=== PATIENT | female | born 1965 | race Caucasian/White ===

== ENCOUNTER → 2016-09-01 | Outpatient (REF) | payer MEDICAID | LOC: M SFHCWAGY 15:35 | PROVIDERS: ATTEND Nurse Practitioner Family | DX: Z12.72 Encounter for screening for malignant neoplasm of vagina (principal) ==

== ENCOUNTER → 2016-09-01 | Outpatient (CLI) | payer MEDICAID ==
--- NOTE | 2016-09-01 16:34 | REPMRS ---
Patient History The patient states she had a clinical breast exam in 08/2016. Patient is postmenopausal. Family history of pancreatic cancer in father at age 43. Digital Woman Screen Mammo: September 01, 2016 - Exam #: [id number] Bilateral CC and MLO view(s) were taken. Technologist: Renea Erickson, Technologist Prior study comparison: March 15, 2013, digital woman screen mammo performed at [facility] to [facility]. March 14, 2012, digital woman screen mammo performed at [facility] to [facility]. FINDINGS: There are scattered fibroglandular densities. There has been no change in the appearance of the mammogram from the prior studies. There is a mild amount of residual fibroglandular tissue which is fairly symmetric. There is no interval development of dominant mass, architectural distortion, or clustered microcalcification suggestive of malignancy. ASSESSMENT: BI-RADS/ACR category 1 mammogram. Negative. Recommendation Routine screening mammogram in 1 year (for women over age 40). This mammogram was interpreted with the aid of an FDA-approved computer-aided dectection system. Electronically Signed By: Trevon Jacobsen MD 09/01/16 [id number]
== END ==
LOC: M WHC 14:55
PROVIDERS: ATTEND Nurse Practitioner Family
DX: Z12.31 Encounter for screening mammogram for malignant neoplasm of breast (principal); Z78.0 Asymptomatic menopausal state

== ENCOUNTER → 2016-10-21 | Outpatient (CLI) | payer MEDICAID, OTHER ==
[2016-10-21 07:25] LABS: MEAN CORPUSCULAR HEMOGLOBIN 30.9 pg (27.0-33.0); MEAN CORPUSCULAR HGB CONC 34.5 g/dl (32.0-36.5); MEAN CORPUSCULAR VOLUME 89.6 fl (80.0-96.0); RED CELL DISTRIBUTION WIDTH 12.6 % (11.5-14.5); WHITE BLOOD COUNT 6.1 K/mm3 (4.0-10.0)
[2016-10-21 08:00] LABS: ALBUMIN 3.8 GM/DL (3.2-5.2); ALBUMIN/GLOBULIN RATIO 1.06 (1.00-1.93); ALKALINE PHOSPHATASE 66 U/L (45-117); ALT/SGPT 78 U/L (12-78); ANION GAP 7 MEQ/L (8-16); AST/SGOT 45 U/L (15-37); BILIRUBIN,TOTAL 0.4 MG/DL (0.2-1.0); BLOOD UREA NITROGEN 18 MG/DL (7-18); CALCIUM LEVEL 8.6 MG/DL (8.5-10.1); CARBON DIOXIDE LEVEL 28 MEQ/L (21-32); CHLORIDE LEVEL 107 MEQ/L (98-107); CHOLESTEROL LEVEL 132 MG/DL (<200); CREATININE FOR GFR 0.87 MG/DL (0.55-1.02); GLOMERULAR FILTRATION RATE > 60.0 (>58); GLUCOSE, FASTING 94 MG/DL (70-105); SODIUM LEVEL 142 MEQ/L (136-145); TOTAL PROTEIN 7.4 GM/DL (6.4-8.2); TRIGLYCERIDES LEVEL 71 MG/DL (<150)
== END ==
LOC: M LAB 06:56
PROVIDERS: ATTEND Nurse Practitioner Family
DX: R73.9 Hyperglycemia, unspecified (principal); E78.5 Hyperlipidemia, unspecified

== ENCOUNTER → 2016-12-29 | Outpatient (CLI) | payer OTHER ==
[~2016-12-29] VITALS: Ht 165.1 cm; Wt 87.5 kg
[~2016-12-29] MED LIST: FENO160T10 PO; LIDOCAINE 2% INJ 100 MG/5 ML SDV (FOR ANES.) As Ordered ONE; NS 1,000 ML IV ONE; PROBCAP4 PO; PROPOFOL 200 MG/20 ML VIAL As Ordered ONE
--- NOTE | 2016-12-29 11:54 | ROOR ---
Patient Name: Nahomi Mena Procedure Date: 12/29/2016 11:35 AM Date of : 1965 Age: 51 Room: [facility] Gender: Female Note Status: Finalized Procedure: Upper GI endoscopy Indications: Nausea Providers: Cricket Zheng Jr, MD Referring MD: SIDNEY RICK MD Requesting Provider: Medicines: Propofol per Anesthesia Complications: No immediate complications. Procedure: Pre-Anesthesia Assessment: - Prior to the procedure, a History and Physical was performed, and patient medications and allergies were reviewed. The patient is competent. The risks and benefits of the procedure and the sedation options and risks were discussed with the patient. All questions were answered and informed consent was obtained. Patient identification and proposed procedure were verified by the physician and the nurse in the pre-procedure area and in the procedure room. Mental Status Examination: alert and oriented. Airway Examination: normal oropharyngeal airway and neck mobility. Respiratory Examination: clear to auscultation. CV Examination: normal. ASA Grade Assessment: II - A patient with mild systemic disease. After reviewing the risks and benefits, the patient was deemed in satisfactory condition to undergo the procedure. The anesthesia plan was to use moderate sedation / analgesia (conscious sedation). Immediately prior to administration of medications, the patient was re-assessed for adequacy to receive sedatives. The heart rate, respiratory rate, oxygen saturations, blood pressure, adequacy of pulmonary ventilation, and response to care were monitored throughout the procedure. The physical status of the patient was re-assessed after the procedure. The Endoscope was introduced through the mouth, and advanced to the second part of duodenum. The upper GI endoscopy was accomplished without difficulty. The patient tolerated the procedure well. Findings: The upper third of the esophagus, middle third of the esophagus and lower third of the esophagus were normal. Patchy moderate inflammation characterized by congestion (edema), erosions, erythema and friability was found in the gastric fundus, in the gastric body, in the gastric antrum and in the prepyloric region of the stomach. Biopsies were taken with a cold forceps for histology. To prevent bleeding after the biopsy, one hemostatic clip was successfully placed. There was no bleeding at the end of the procedure. The duodenal bulb, first portion of the duodenum and second portion of the duodenum were normal. Impression: - Normal upper third of esophagus, middle third of esophagus and lower third of esophagus. - Gastritis. Biopsied. Clip was placed. - Normal duodenal bulb, first portion of the duodenum and second portion of the duodenum. Recommendation: - Discharge patient to home (ambulatory). - Return to my office in 2 weeks. Cricket Zheng MD Cricket Zheng Jr, MD 12/29/2016 11:53:26 AM This report has been signed electronically. Number of Addenda: 0 Note Initiated On: 12/29/2016 11:35 AM Estimated Blood Loss: Estimated blood loss: none.
--- NOTE | 2016-12-29 12:09 | ROOR ---
Patient Name: Nahomi Mena Procedure Date: 12/29/2016 11:36 AM Date of : 1965 Age: 51 Room: [facility] Gender: Female Note Status: Finalized Procedure: Colonoscopy Indications: Clinically significant diarrhea of unexplained origin Providers: Cricket Zheng Jr, MD Referring MD: SIDNEY RICK MD Requesting Provider: Medicines: Propofol per Anesthesia Complications: No immediate complications. Procedure: Pre-Anesthesia Assessment: - Prior to the procedure, a History and Physical was performed, and patient medications and allergies were reviewed. The patient is competent. The risks and benefits of the procedure and the sedation options and risks were discussed with the patient. All questions were answered and informed consent was obtained. Patient identification and proposed procedure were verified by the physician and the nurse in the pre-procedure area and in the procedure room. Mental Status Examination: alert and oriented. Airway Examination: normal oropharyngeal airway and neck mobility. Respiratory Examination: clear to auscultation. CV Examination: normal. ASA Grade Assessment: II - A patient with mild systemic disease. After reviewing the risks and benefits, the patient was deemed in satisfactory condition to undergo the procedure. The anesthesia plan was to use moderate sedation / analgesia (conscious sedation). Immediately prior to administration of medications, the patient was re-assessed for adequacy to receive sedatives. The heart rate, respiratory rate, oxygen saturations, blood pressure, adequacy of pulmonary ventilation, and response to care were monitored throughout the procedure. The physical status of the patient was re-assessed after the procedure. The Colonoscope was introduced through the anus and advanced to the terminal ileum. The colonoscopy was performed without difficulty. The patient tolerated the procedure well. The quality of the bowel preparation was adequate. Findings: The perianal exam findings include non-thrombosed external hemorrhoids, non-thrombosed internal hemorrhoids, internal hemorrhoids that prolapse with straining, but spontaneously regress to the resting position (Grade II) and internal hemorrhoids that prolapse with straining, but require manual replacement into the anal canal (Grade III). The rectum, recto-sigmoid colon, sigmoid colon, descending colon, transverse colon, ascending colon, ileocecal valve and ileum appeared normal. Biopsies for histology were taken with a cold forceps from the ascending colon, transverse colon, descending colon and sigmoid colon for evaluation of microscopic colitis. Impression: - Non-thrombosed external hemorrhoids, non-thrombosed internal hemorrhoids, internal hemorrhoids that prolapse with straining, but spontaneously regress to the resting position (Grade II) and internal hemorrhoids that prolapse with straining, but require manual replacement into the anal canal (Grade III) found on perianal exam. - The rectum, recto-sigmoid colon, sigmoid colon, descending colon, transverse colon, ascending colon, ileocecal valve and terminal ileum are normal. Biopsied. Recommendation: - Discharge patient to home (ambulatory). - Return to my office. Cricket Zheng MD Cricket Zheng Jr, MD 12/29/2016 12:09:06 PM This report has been signed electronically. Number of Addenda: 0 Note Initiated On: 12/29/2016 11:36 AM Estimated Blood Loss: Estimated blood loss: none.
[2016-12-29 12:35] VITALS: BP 108/70
== END | disposition home or self-care (01) ==
LOC: M OPP 09:42
PROVIDERS: ATTEND Surgery
DX: K64.4 Residual hemorrhoidal skin tags (principal); K64.8 Other hemorrhoids; K64.1 Second degree hemorrhoids; K64.2 Third degree hemorrhoids; R11.0 Nausea; K29.70 Gastritis, unspecified, without bleeding; E78.00 Pure hypercholesterolemia, unspecified; R06.83 Snoring; I10 Essential (primary) hypertension; F41.9 Anxiety disorder, unspecified; F31.9 Bipolar disorder, unspecified; Z79.899 Other long term (current) drug therapy

== ENCOUNTER → 2017-05-01 | Outpatient (REF) | payer OTHER ==
[~2017-05-01] MED LIST changes: -LIDOCAINE 2% INJ 100 MG/5 ML SDV (FOR ANES.) As Ordered ONE; -NS 1,000 ML IV ONE; -PROPOFOL 200 MG/20 ML VIAL As Ordered ONE
== END ==
LOC: M LAB REF 17:38
PROVIDERS: ATTEND Surgery
DX: D48.5 Neoplasm of uncertain behavior of skin (principal)

== ENCOUNTER → 2017-05-11 | Outpatient (REF) | payer OTHER | LOC: M LAB REF 18:35 | PROVIDERS: ATTEND Physician Assistant | DX: N39.0 Urinary tract infection, site not specified (principal) ==

== ENCOUNTER → 2017-05-22 | Outpatient (CLI) | payer OTHER | LOC: M WUC 09:16 | PROVIDERS: ATTEND Nurse Practitioner Family | DX: Z11.4 Encounter for screening for human immunodeficiency virus [HIV] (principal) ==

== ENCOUNTER → 2017-07-04 | Outpatient (CLI) | payer OTHER ==
[2017-07-04 07:44] LABS: HEMATOCRIT 43.4 % (36.0-47.0); HEMOGLOBIN 14.9 g/dl (12.0-16.0); MEAN CORPUSCULAR HEMOGLOBIN 30.5 pg (27.0-33.0); MEAN CORPUSCULAR HGB CONC 34.3 g/dl (32.0-36.5); MEAN CORPUSCULAR VOLUME 88.8 fl (80.0-96.0); PLATELET COUNT, AUTOMATED 265 10^3/uL (150-450); RED BLOOD COUNT 4.89 10^6/uL (4.00-5.40); RED CELL DISTRIBUTION WIDTH 12.9 % (11.5-14.5); WHITE BLOOD COUNT 6.3 10^3/uL (4.0-10.0)
[2017-07-04 08:08] LABS: ALBUMIN 3.8 GM/DL (3.2-5.2); ALBUMIN/GLOBULIN RATIO 1.03 (1.00-1.93); ALKALINE PHOSPHATASE 76 U/L (45-117); ALT/SGPT 74 U/L (12-78); ANION GAP 6 MEQ/L (8-16); AST/SGOT 52 U/L (7-37); BILIRUBIN,TOTAL 0.4 MG/DL (0.2-1.0); BLOOD UREA NITROGEN 15 MG/DL (7-18); CALCIUM LEVEL 8.9 MG/DL (8.5-10.1); CARBON DIOXIDE LEVEL 29 MEQ/L (21-32); CHLORIDE LEVEL 109 MEQ/L (98-107); CHOLESTEROL LEVEL 127 MG/DL (<200); CHOLESTEROL RISK RATIO 2.822 (<5); CPK CREATINE PHOSPHOKINASE 123 U/L (26-192); CREATININE FOR GFR 0.79 MG/DL (0.55-1.02); GLOMERULAR FILTRATION RATE > 60.0 (>51); GLUCOSE, FASTING 96 MG/DL (70-100); HDL CHOLESTEROL 45 MG/DL (>40); LDL CHOLESTEROL 61.8 MG/DL (<100); NON-HDL-C 82 MG/DL; POTASSIUM SERUM 4.3 MEQ/L (3.5-5.1); SODIUM LEVEL 144 MEQ/L (136-145); TOTAL PROTEIN 7.5 GM/DL (6.4-8.2); TRIGLYCERIDES LEVEL 101 MG/DL (<150)
[2017-07-04 08:33] LABS: VITAMIN B12 LEVEL 421 PG/ML (247-911)
== END ==
LOC: M LAB 06:39
DX: D64.9 Anemia, unspecified (principal); E55.9 Vitamin D deficiency, unspecified
CPT/HCPCS: 82550

== ENCOUNTER → 2017-09-12 | Outpatient (CLI) | payer OTHER ==
[2017-09-12 07:05] LABS: ESTIMATED AVERAGE GLUCOSE 111 MG/DL (60-110); HEMOGLOBIN A1c 5.5 %
[2017-09-12 07:17] LABS: FREE T4 1.02 NG/DL (0.76-1.46)
== END ==
LOC: M LAB 06:06
DX: R73.9 Hyperglycemia, unspecified (principal); E03.9 Hypothyroidism, unspecified

== ENCOUNTER → 2018-01-08 | Outpatient (REF) | payer OTHER ==
[2018-01-08 12:41] LABS: CHOLESTEROL LEVEL 118 MG/DL (<200); CHOLESTEROL RISK RATIO 3.105 (<5); CPK CREATINE PHOSPHOKINASE 236 U/L (26-192); HDL CHOLESTEROL 38 MG/DL (>40); LDL CHOLESTEROL 50.2 MG/DL (<100); NON-HDL-C 80 MG/DL; TRIGLYCERIDES LEVEL 149 MG/DL (<150)
[2018-01-08 12:52] LABS: PTH INTACT 22.3 PG/ML (18.5-88.0); TOTAL 25(OH) VITAMIN D 55.7 NG/ML (30.0-100.0)
== END ==
LOC: M SFHCPLAZ 08:35
DX: E78.5 Hyperlipidemia, unspecified (principal); E55.9 Vitamin D deficiency, unspecified

== ENCOUNTER → 2018-02-01 | Outpatient (REF) | payer OTHER ==
[2018-02-01 17:11] LABS: CHLAMYDIA DNA AMPLIFICATION NEGATIVE (NEGATIVE); GC DNA AMPLIFICATION NEGATIVE (NEGATIVE)
== END ==
LOC: M SFHCWAGY 15:33
DX: Z11.3 Encounter for screening for infections with a predominantly sexual mode of transmission (principal)

== ENCOUNTER 2018-02-26 16:31 | Emergency (ER) | payer OTHER | END 2018-02-26 21:07 | disposition left against medical advice (07) | LOC: M ED 16:31 | DX: Z53.21 Procedure and treatment not carried out due to patient leaving prior to being seen by health care provider (principal) ==

== ENCOUNTER → 2018-05-16 | Outpatient (CLI) | payer OTHER | LOC: M WHC 08:19 | DX: Z12.31 Encounter for screening mammogram for malignant neoplasm of breast (principal); Z78.0 Asymptomatic menopausal state | CPT/HCPCS: 77067 ==

== ENCOUNTER → 2018-05-28 | Outpatient (CLI) | payer OTHER ==
[~2018-05-28] MED LIST changes: +MELO15TA28; +OMEP20CA3; +VALT500T PO; +VITA50005
[2018-05-28 08:36] LABS: BASO # 0.1 10^3/uL (0.0-0.2); BASO % 0.7 % (0.0-1.0); EOS # 0.1 10^3/uL (0.0-0.50); EOS % 1.9 % (0.0-3.0); HEMATOCRIT 42.5 % (36.0-47.0); HEMOGLOBIN 14.9 g/dl (12.0-15.5); LYMPH % 27.5 % (24.0-44.0); MEAN CORPUSCULAR HEMOGLOBIN 30.8 pg (27.0-33.0); MEAN CORPUSCULAR HGB CONC 35.1 g/dl (32.0-36.5); MEAN CORPUSCULAR VOLUME 87.8 fl (80.0-96.0); MONO # 0.6 10^3/uL (0.0-0.8); MONO % 8.7 % (0.0-5.0); NEUTROPHILS # 4.4 10^3/uL (1.8-7.7); NEUTROPHILS % 60.8 % (36.0-66.0); PLATELET COUNT, AUTOMATED 285 10^3/uL (150-450); RED BLOOD COUNT 4.84 10^6/uL (4.00-5.40); WHITE BLOOD COUNT 7.2 10^3/uL (4.0-10.0)
[2018-05-28 09:07] LABS: ALBUMIN 3.6 GM/DL (3.2-5.2); ALT/SGPT 53 U/L (12-78); BILIRUBIN,TOTAL 0.3 MG/DL (0.2-1.0); BLOOD UREA NITROGEN 16 MG/DL (7-18); CALCIUM LEVEL 8.8 MG/DL (8.5-10.1); CARBON DIOXIDE LEVEL 29 MEQ/L (21-32); CHLORIDE LEVEL 107 MEQ/L (98-107); CREATININE FOR GFR 0.87 MG/DL (0.55-1.30); GLOMERULAR FILTRATION RATE > 60.0 (>51); GLUCOSE, FASTING 101 MG/DL (70-100); POTASSIUM SERUM 4.1 MEQ/L (3.5-5.1); SODIUM LEVEL 143 MEQ/L (136-145)
[2018-05-28 10:38] LABS: HEMOGLOBIN A1c 5.8 %
[2018-05-28 10:54] LABS: PTH INTACT 44.7 PG/ML (18.5-88.0); TOTAL 25(OH) VITAMIN D 73.5 NG/ML (30.0-100.0)
[2018-05-28 10:55] LABS: VITAMIN B12 LEVEL 438 PG/ML (247-911)
== END ==
LOC: M LAB 08:05
PROVIDERS: ATTEND Physician Assistant Medical
DX: R53.83 Other fatigue (principal); E78.5 Hyperlipidemia, unspecified; E66.9 Obesity, unspecified; E55.9 Vitamin D deficiency, unspecified

== ENCOUNTER → 2018-06-15 | Outpatient (CLI) | payer BC ==
[~2018-06-15] MED LIST changes: +GASTROGRAFIN SOLUTION 30ML (Q9963) As Ordered ONE; +ISOVUE-370 76% 100ML VIAL (Q9967) As Ordered ONE
--- NOTE | 2018-06-15 16:59 | REP ---
REASON FOR EXAM: Right upper quadrant pain. COMPARISON EXAM: None. CONTRAST: 100 mL Isovue-[id number]. The lung bases are clear. The liver, spleen, pancreas, adrenal glands, and kidneys are within normal limits. The patient is status-post cholecystectomy. There is an incidental subcentimeter sized focal area of low density in the superior pole of the left kidney consistent with a simple cyst. The abdominal aorta and paraaortic regions are within normal limits. The bowel loops and their mesenteries are within normal limits. There was no evidence of an intraabdominal mass or adenopathy. There was no evidence of free fluid or free air. CT PELVIS: The bowel loops and their mesenteries are within normal limits. There is no mass or adenopathy. There was no free fluid or free air. Bone window technique throughout the examination shows the osseous structures to be within normal limits for the patient's age. IMPRESSION:CT findings as described above, within normal limits. Electronically Signed by Chinedu Edwards DO 06/18/2018 05:24 P
== END ==
LOC: M RAD 14:18
PROVIDERS: ATTEND Surgery
DX: R10.11 Right upper quadrant pain (principal)
CPT/HCPCS: 74177; Q9963; Q9967

== ENCOUNTER → 2018-09-16 | Outpatient (CLI) | payer BC ==
[~2018-09-16] MED LIST changes: -GASTROGRAFIN SOLUTION 30ML (Q9963) As Ordered ONE; -ISOVUE-370 76% 100ML VIAL (Q9967) As Ordered ONE
[2018-09-16 09:42] LABS: ALT/SGPT 48 U/L (12-78); BILIRUBIN,TOTAL 0.4 MG/DL (0.2-1.0); BLOOD UREA NITROGEN 20 MG/DL (7-18); CARBON DIOXIDE LEVEL 27 MEQ/L (21-32); CHLORIDE LEVEL 110 MEQ/L (98-107); GLOMERULAR FILTRATION RATE > 60.0 (>51); GLUCOSE, FASTING 92 MG/DL (70-100); POTASSIUM SERUM 4.3 MEQ/L (3.5-5.1); SODIUM LEVEL 143 MEQ/L (136-145); TOTAL PROTEIN 7.5 GM/DL (6.4-8.2)
[2018-09-16 10:22] LABS: HEMOGLOBIN A1c 5.5 %
== END ==
LOC: M LAB 08:23
PROVIDERS: ATTEND Physician Assistant Medical
DX: R73.01 Impaired fasting glucose (principal)

== ENCOUNTER → 2018-11-26 | Outpatient (CLI) | payer BC ==
--- NOTE | 2018-11-26 19:41 | REP ---
MR spine series: Five views: History: Lumbar radiculopathy. Findings: There are surgical clips in right upper quadrant of the abdomen consistent with previous cholecystectomy. Lumbar vertebral body heights are preserved. Alignment is normal in the lumbar spine. There is disc space narrowing at L4-5 with anterior osteophyte formation consistent with degenerative disc disease. Some degenerative disc changes are seen in the lower thoracic spine as well. There is no evidence of spondylolysis or spondylolisthesis. Mild facet hypertrophy is present bilaterally L4-5 and L5-S1. Psoas margins are symmetric. Sacrum and SI joints are unremarkable. Impression: Degenerative disc disease L4-5. Mild facet hypertrophy bilaterally at 4-5 and 5-1. Electronically Signed by Bj Whiteside MD 11/27/2018 08:33 A
== END ==
LOC: M WUC 16:28
PROVIDERS: ATTEND Chiropractor
DX: M51.36 Other intervertebral disc degeneration, lumbar region (principal); M51.37 Other intervertebral disc degeneration, lumbosacral region

== ENCOUNTER → 2018-12-25 | Outpatient (REF) | payer BC ==
[~2018-12-25] MED LIST changes: +OMEP1CAP73; -OMEP20CA3
[2018-12-25 20:19] LABS: APPEARANCE, URINE MANUAL CLOUDY (CLEAR); BILIRUBIN, URINE MANUAL OBSCURED (NEGATIVE); BLOOD URINE MANUAL OBSCURED (NEGATIVE); COLOR, URINE MANUAL ORANGE (YELLOW); GLUCOSE, URINE (UA) MANUAL OBSCURED mg/dL (NEGATIVE); KETONE, URINE MANUAL OBSCURED mg/dL (NEGATIVE); LEUKOCYTE ESTERASE, URINE MAN OBSCURED (NEGATIVE); NITRITE, URINE MANUAL OBSCURED (NEGATIVE); PH,URINE MAN OBSCURED UNITS (5.0 - 7.0); PROTEIN, URINE MANUAL OBSCURED mg/dL (NEGATIVE); UROBILINOGEN, URINE MANUAL OBSCURED mg/dl (NORMAL)
[2018-12-25 20:34] LABS: AMORPHOUS SEDIMENT, URINE LARGE AMOUNT (NEGATIVE)
[2018-12-25 20:35] LABS: CALCIUM OXALATE CRYSTALS,URINE SMALL AMOUNT /hpf
[2018-12-25 20:36] LABS: HYALINE CAST, URINE NONE SEEN /lpf (0-1); RBC, URINE 0-1 /hpf (0-3); SQUAMOUS EPITHELIAL CELL URINE SMALL AMOUNT /hpf (SMALL AMT)
[2018-12-25 20:39] LABS: BACTERIA, URINE SMALL AMOUNT
== END ==
LOC: M LAB REF 11:48
PROVIDERS: ATTEND Physician Assistant Medical
DX: R30.0 Dysuria (principal)

== ENCOUNTER → 2019-03-07 | Outpatient (REF) | payer BC ==
[~2019-03-07] MED LIST changes: -OMEP1CAP73; +OMEP20CA4
[2019-03-07 17:30] LABS: FREE T4 1.14 NG/DL (0.76-1.46); RHEUMATOID FACTOR QUANT < 10.0 IU/ML (<15.0); TOTAL PROTEIN 7.2 GM/DL (6.4-8.2)
[2019-03-07 17:31] LABS: FOLATE 18.5 NG/ML; VITAMIN B12 LEVEL 847 PG/ML
[2019-03-12 09:17] LABS: DRVV SCREEN 36.1 SEC
[2019-03-12 09:37] LABS: ALBUMIN 4.06 GM/DL (3.29-5.55); ALBUMIN % 56.4 % (55.8-66.1); ALPHA-1-GLOBULIN % 4.4 % (2.9-4.9); ALPHA-1-GLOBULINS 0.32 GM/DL (0.17-0.41); ALPHA-2-GLOBULINS 0.68 GM/DL (0.42-0.99); ALPHA-2-GLOBULINS % 9.4 % (7.1-11.8); BETA-1-GLOBULINS 0.46 GM/DL (0.28-0.60); BETA-1-GLOBULINS % 6.4 % (4.7-7.2); BETA-2-GLOBULINS % 5.6 % (3.2-6.5); GAMMA GLOBULIN % 17.8 % (11.1-18.8); GAMMA GLOBULINS 1.28 GM/DL (0.65-1.58)
[2019-03-12 10:06] LABS: PTT LUPUS TYPE ANTICOAG SCREEN 0.9 (0-1.2)
[2019-03-13 08:12] LABS: ANTINUCLEAR ANTIBODIES DIRECT Negative (Negative); VITAMIN B1 LEVEL WHOLE BLOOD 148.3 nmol/L (66.5-200.0); VITAMIN B6,PYRIDOXAL PHOSPHATE 24.8 ug/L (2.0-32.8); VITAMIN E(ALPHA TOCOPHEROL) 6.6 mg/L (7.0-25.1); VITAMIN E(GAMMA TOCOPHEROL) 1.9 mg/L (0.5-5.5)
== END ==
LOC: M LABNEURO 13:11
PROVIDERS: ATTEND Psychiatry & Neurology Neurology
DX: G62.9 Polyneuropathy, unspecified (principal)

== ENCOUNTER → 2019-04-15 | Outpatient (REF) | payer OTHER | LOC: M LAB REF 14:39 | PROVIDERS: ATTEND Internal Medicine Gastroenterology | DX: K30 Functional dyspepsia (principal) ==

== ENCOUNTER → 2019-04-23 | Outpatient (REF) | payer OTHER, BC ==
[2019-04-23 19:15] LABS: CHLAMYDIA DNA AMPLIFICATION NEGATIVE (NEGATIVE); GC DNA AMPLIFICATION NEGATIVE (NEGATIVE)
== END ==
LOC: M SFHCWAGY 17:11
PROVIDERS: ATTEND Nurse Practitioner Family
DX: Z11.3 Encounter for screening for infections with a predominantly sexual mode of transmission (principal)

== ENCOUNTER → 2019-05-25 | Outpatient (CLI) | payer BC ==
[~2019-05-25] MED LIST changes: +OMEP-172; -OMEP20CA4
[2019-05-25 08:52] LABS: BASO % 0.5 % (0.0-1.0); EOS # 0.1 10^3/uL (0.0-0.5); EOS % 1.1 % (0.0-3.0); HEMATOCRIT 44.7 % (36.0-47.0); HEMOGLOBIN 14.8 g/dl (12.0-15.5); LYMPH # 1.8 10^3/uL (1.5-5.0); LYMPH % 29.1 % (24.0-44.0); MEAN CORPUSCULAR HEMOGLOBIN 30.5 pg (27.0-33.0); MEAN CORPUSCULAR HGB CONC 33.1 g/dl (32.0-36.5); MEAN CORPUSCULAR VOLUME 92.2 fl (80.0-96.0); MONO # 0.5 10^3/uL (0.0-0.8); MONO % 8.1 % (0.0-5.0); NEUTROPHILS # 3.8 10^3/uL (1.5-8.5); NEUTROPHILS % 60.7 % (36.0-66.0); PLATELET COUNT, AUTOMATED 298 10^3/uL (150-450); RED BLOOD COUNT 4.85 10^6/uL (4.00-5.40); WHITE BLOOD COUNT 6.3 10^3/uL (4.0-10.0)
[2019-05-25 09:19] LABS: ALBUMIN 3.9 GM/DL (3.2-5.2); ALT/SGPT 42 U/L (12-78); BILIRUBIN,TOTAL 0.4 MG/DL (0.2-1.0); BLOOD UREA NITROGEN 17 MG/DL (7-18); CARBON DIOXIDE LEVEL 30 MEQ/L (21-32); CHLORIDE LEVEL 109 MEQ/L (98-107); CHOLESTEROL LEVEL 109 MG/DL (<200); CHOLESTEROL RISK RATIO 2.945 (<5); CREATININE FOR GFR 0.82 MG/DL (0.55-1.30); FREE T4 0.98 NG/DL (0.76-1.46); GLOMERULAR FILTRATION RATE > 60.0 (>51); GLUCOSE, FASTING 90 MG/DL (70-100); HDL CHOLESTEROL 37 MG/DL (>40); LDL CHOLESTEROL 53 MG/DL (<100); NON-HDL-C 72 MG/DL; POTASSIUM SERUM 4.6 MEQ/L (3.5-5.1); SODIUM LEVEL 145 MEQ/L (136-145); TOTAL PROTEIN 7.4 GM/DL (6.4-8.2); TRIGLYCERIDES LEVEL 94 MG/DL (<150)
[2019-05-25 10:10] LABS: HEMOGLOBIN A1c 5.7 %
[2019-05-27 10:25] LABS: PTH INTACT 31.8 PG/ML (18.5-88.0); TOTAL 25(OH) VITAMIN D 89.2 NG/ML (30.0-100.0)
== END ==
LOC: M LAB 08:05
PROVIDERS: ATTEND Physician Assistant Medical
DX: K21.9 Gastro-esophageal reflux disease without esophagitis (principal); E78.5 Hyperlipidemia, unspecified; E66.9 Obesity, unspecified; R73.01 Impaired fasting glucose

== ENCOUNTER → 2019-06-20 | Outpatient (CLI) | payer BC ==
[~2019-06-20] MED LIST changes: -OMEP-172; +OMEP1CAP73
--- NOTE | 2019-06-20 11:01 | REPMRS ---
Patient History The patient states she had a clinical breast exam in 2019. Family history of pancreatic cancer at age 43 in father. No Hormone Replacement Therapy Digital Woman Screen Mammo: June 20, 2019 - Exam #: [id number] Bilateral CC and MLO view(s) were taken. Technologist: Freda Marrufo, Technologist Prior study comparison: May 16, 2018, bilateral digital woman screen mammo performed at [facility]. September 01, 2016, digital woman screen mammo performed at [facility]. March 15, 2013, digital woman screen mammo performed at [facility]. FINDINGS: The breast tissue is heterogeneously dense. This may lower the sensitivity of mammography. There is a moderate amount of heterogeneously dense fibroglandular tissue which is fairly symmetric. There is no interval development of dominant mass, architectural distortion, or grouped microcalcification typical of malignancy. There has been no change in the appearance of the mammogram from the prior studies. 3-D tomosynthesis shows no additional findings. Assessment: BI-RADS/ACR category 1 mammogram. Negative Mammogram. Recommendation Routine screening mammogram of both breasts in 1 year (for women over age 40). This patient's Lifetime Breast Cancer RIsk is estimated at 5.1 %. This mammogram was interpreted with the aid of an FDA-approved computer-aided dectection system. Electronically Signed By: Isak Whiteside MD 06/20/19 [id number]
== END ==
LOC: M WHC 08:15
PROVIDERS: ATTEND Nurse Practitioner Family
DX: Z12.31 Encounter for screening mammogram for malignant neoplasm of breast (principal)

== ENCOUNTER → 2019-11-06 | Outpatient (CLI) | payer BC ==
[2019-11-06 06:56] LABS: BASO % 0.6 % (0.0-1.0); EOS # 0.1 10^3/uL (0.0-0.5); EOS % 1.6 % (0.0-3.0); HEMATOCRIT 43.8 % (36.0-47.0); HEMOGLOBIN 15.1 g/dl (12.0-15.5); LYMPH # 2.2 10^3/uL (1.5-5.0); LYMPH % 31.6 % (24.0-44.0); MEAN CORPUSCULAR HEMOGLOBIN 31.1 pg (27.0-33.0); MEAN CORPUSCULAR HGB CONC 34.5 g/dl (32.0-36.5); MEAN CORPUSCULAR VOLUME 90.3 fl (80.0-96.0); MONO # 0.6 10^3/uL (0.0-0.8); MONO % 7.8 % (0.0-5.0); NEUTROPHILS # 4.1 10^3/uL (1.5-8.5); NEUTROPHILS % 57.8 % (36.0-66.0); PLATELET COUNT, AUTOMATED 283 10^3/uL (150-450); RED BLOOD COUNT 4.85 10^6/uL (4.00-5.40)
[2019-11-06 07:07] LABS: HEMOGLOBIN A1c 5.4 %
[2019-11-06 07:32] LABS: ALT/SGPT 52 U/L (12-78); BILIRUBIN,TOTAL 0.5 MG/DL (0.2-1.0); BLOOD UREA NITROGEN 16 MG/DL (7-18); CALCIUM LEVEL 9.1 MG/DL (8.5-10.1); CARBON DIOXIDE LEVEL 29 MEQ/L (21-32); CHLORIDE LEVEL 108 MEQ/L (98-107); FREE T4 1.08 NG/DL (0.76-1.46); GLOMERULAR FILTRATION RATE > 60.0 (>51); GLUCOSE, FASTING 93 MG/DL (70-100); POTASSIUM SERUM 4.3 MEQ/L (3.5-5.1); SODIUM LEVEL 140 MEQ/L (136-145); TOTAL PROTEIN 7.7 GM/DL (6.4-8.2)
== END ==
LOC: M LAB 06:15
PROVIDERS: ATTEND Physician Assistant Medical
DX: R73.01 Impaired fasting glucose (principal)

== ENCOUNTER → 2020-02-11 | Outpatient (CLI) | payer BC ==
[2020-02-11 09:41] LABS: BASO % 0.4 % (0.0-1.0); EOS # 0.1 10^3/uL (0.0-0.5); EOS % 1.4 % (0.0-3.0); HEMATOCRIT 44.5 % (36.0-47.0); HEMOGLOBIN 15.1 g/dl (12.0-15.5); LYMPH % 25.6 % (24.0-44.0); MEAN CORPUSCULAR HEMOGLOBIN 31.2 pg (27.0-33.0); MEAN CORPUSCULAR HGB CONC 33.9 g/dl (32.0-36.5); MEAN CORPUSCULAR VOLUME 91.9 fl (80.0-96.0); MONO # 0.5 10^3/uL (0.0-0.8); MONO % 6.3 % (0.0-5.0); NEUTROPHILS # 5.1 10^3/uL (1.5-8.5); NEUTROPHILS % 65.9 % (36.0-66.0); PLATELET COUNT, AUTOMATED 286 10^3/uL (150-450); RED BLOOD COUNT 4.84 10^6/uL (4.00-5.40); WHITE BLOOD COUNT 7.7 10^3/uL (4.0-10.0)
[2020-02-11 10:20] LABS: ALBUMIN 3.6 GM/DL (3.2-5.2); ALT/SGPT 54 U/L (12-78); BILIRUBIN,TOTAL 0.5 MG/DL (0.2-1.0); BLOOD UREA NITROGEN 15 MG/DL (7-18); CALCIUM LEVEL 9.1 MG/DL (8.5-10.1); CARBON DIOXIDE LEVEL 28 MEQ/L (21-32); CHLORIDE LEVEL 107 MEQ/L (98-107); CREATININE FOR GFR 0.82 MG/DL (0.55-1.30); FREE T4 0.99 NG/DL (0.76-1.46); GLOMERULAR FILTRATION RATE > 60.0 (>51); GLUCOSE, FASTING 117 MG/DL (70-100); SODIUM LEVEL 142 MEQ/L (136-145); TOTAL PROTEIN 7.1 GM/DL (6.4-8.2)
== END ==
LOC: M LAB 07:47
PROVIDERS: ATTEND Family Medicine
DX: R53.83 Other fatigue (principal)

== ENCOUNTER → 2020-02-21 | Outpatient (CLI) | payer BC ==
[2020-02-21 14:25] LABS: BASO % 0.3 % (0.0-1.0); EOS # 0.1 10^3/uL (0.0-0.5); EOS % 0.6 % (0.0-3.0); HEMATOCRIT 44.8 % (36.0-47.0); HEMOGLOBIN 15.2 g/dl (12.0-15.5); LYMPH # 1.9 10^3/uL (1.5-5.0); LYMPH % 16.2 % (24.0-44.0); MEAN CORPUSCULAR HEMOGLOBIN 31.3 pg (27.0-33.0); MEAN CORPUSCULAR HGB CONC 33.9 g/dl (32.0-36.5); MEAN CORPUSCULAR VOLUME 92.2 fl (80.0-96.0); MONO # 0.7 10^3/uL (0.0-0.8); MONO % 6.1 % (0.0-5.0); NEUTROPHILS % 76.2 % (36.0-66.0); PLATELET COUNT, AUTOMATED 291 10^3/uL (150-450); RED BLOOD COUNT 4.86 10^6/uL (4.00-5.40); WHITE BLOOD COUNT 11.8 10^3/uL (4.0-10.0)
[2020-02-21 14:42] LABS: ALBUMIN 3.8 GM/DL (3.2-5.2); ALT/SGPT 54 U/L (12-78); BILIRUBIN,TOTAL 0.5 MG/DL (0.2-1.0); BLOOD UREA NITROGEN 12 MG/DL (7-18); CALCIUM LEVEL 9.5 MG/DL (8.5-10.1); CARBON DIOXIDE LEVEL 27 MEQ/L (21-32); CHLORIDE LEVEL 106 MEQ/L (98-107); CREATININE FOR GFR 0.85 MG/DL (0.55-1.30); GLOMERULAR FILTRATION RATE > 60.0 (>51); GLUCOSE, FASTING 109 MG/DL (70-100); POTASSIUM SERUM 4.4 MEQ/L (3.5-5.1); SODIUM LEVEL 140 MEQ/L (136-145); TOTAL PROTEIN 7.5 GM/DL (6.4-8.2)
--- NOTE | 2020-03-13 11:22 | REP ---
ABDOMINAL RADIOGRAPHS: CLINICAL: Lower abdominal pain. TECHNIQUE: Two supine views of the abdomen and pelvis. FINDINGS: Moderate fecal stasis and possible constipation may be related to patient symptoms. No evidence for bowel obstruction or perforation. Prior cholecystectomy noted. Phlebolith identified in the pelvis. Skeletal structures are intact. IMPRESSION: Moderate fecal stasis and possible constipation. MTDD
== END ==
LOC: M LAB 12:53
PROVIDERS: ATTEND Internal Medicine Gastroenterology
DX: R10.30 Lower abdominal pain, unspecified (principal)

== ENCOUNTER → 2020-04-10 | Outpatient (CLI) | payer BC ==
[2020-04-10 07:01] LABS: BASO % 0.4 % (0.0-1.0); EOS # 0.1 10^3/uL (0.0-0.5); EOS % 1.6 % (0.0-3.0); HEMATOCRIT 45.5 % (36.0-47.0); LYMPH # 2.1 10^3/uL (1.5-5.0); MONO # 0.6 10^3/uL (0.0-0.8); MONO % 8.1 % (0.0-5.0); NEUTROPHILS # 4.5 10^3/uL (1.5-8.5); NEUTROPHILS % 61.4 % (36.0-66.0); PLATELET COUNT, AUTOMATED 306 10^3/uL (150-450); WHITE BLOOD COUNT 7.4 10^3/uL (4.0-10.0)
[2020-04-10 07:14] LABS: ALBUMIN 3.8 GM/DL (3.2-5.2); ALT/SGPT 54 U/L (12-78); BILIRUBIN,TOTAL 0.4 MG/DL (0.2-1.0); BLOOD UREA NITROGEN 21 MG/DL (7-18); CALCIUM LEVEL 9.4 MG/DL (8.5-10.1); CARBON DIOXIDE LEVEL 29 MEQ/L (21-32); CHLORIDE LEVEL 106 MEQ/L (98-107); GLOMERULAR FILTRATION RATE > 60.0 (>51); GLUCOSE, FASTING 101 MG/DL (70-100); POTASSIUM SERUM 4.3 MEQ/L (3.5-5.1); SODIUM LEVEL 141 MEQ/L (136-145); TOTAL PROTEIN 7.7 GM/DL (6.4-8.2)
[2020-04-10 07:29] LABS: HEMOGLOBIN A1c 5.5 %
== END ==
LOC: M LAB 06:00
PROVIDERS: ATTEND Physician Assistant Medical
DX: D72.829 Elevated white blood cell count, unspecified (principal); R73.01 Impaired fasting glucose

== ENCOUNTER → 2020-05-01 | Outpatient (CLI) | payer BC ==
[2020-05-01 07:09] LABS: BASO % 0.5 % (0.0-1.0); EOS # 0.1 10^3/uL (0.0-0.5); EOS % 1.1 % (0.0-3.0); HEMATOCRIT 44.4 % (36.0-47.0); HEMOGLOBIN 14.7 g/dl (12.0-15.5); LYMPH # 1.7 10^3/uL (1.5-5.0); LYMPH % 27.1 % (24.0-44.0); MEAN CORPUSCULAR HEMOGLOBIN 30.2 pg (27.0-33.0); MEAN CORPUSCULAR HGB CONC 33.1 g/dl (32.0-36.5); MEAN CORPUSCULAR VOLUME 91.4 fl (80.0-96.0); MONO # 0.5 10^3/uL (0.0-0.8); MONO % 7.2 % (0.0-5.0); NEUTROPHILS % 63.5 % (36.0-66.0); PLATELET COUNT, AUTOMATED 297 10^3/uL (150-450); RED BLOOD COUNT 4.86 10^6/uL (4.00-5.40); WHITE BLOOD COUNT 6.2 10^3/uL (4.0-10.0)
[2020-05-01 07:27] LABS: HEMOGLOBIN A1c 5.5 %
[2020-05-01 07:32] LABS: ALT/SGPT 58 U/L (12-78); BILIRUBIN,TOTAL 0.5 MG/DL (0.2-1.0); BLOOD UREA NITROGEN 17 MG/DL (7-18); CALCIUM LEVEL 9.3 MG/DL (8.5-10.1); CARBON DIOXIDE LEVEL 29 MEQ/L (21-32); CHLORIDE LEVEL 106 MEQ/L (98-107); CHOLESTEROL LEVEL 114 MG/DL (<200); CPK CREATINE PHOSPHOKINASE 96 U/L (26-192); CREATININE FOR GFR 0.87 MG/DL (0.55-1.30); GLOMERULAR FILTRATION RATE > 60.0 (>51); GLUCOSE, FASTING 102 MG/DL (70-100); HDL CHOLESTEROL 37 MG/DL (>40); POTASSIUM SERUM 4.4 MEQ/L (3.5-5.1); SODIUM LEVEL 140 MEQ/L (136-145); TRIGLYCERIDES LEVEL 110 MG/DL (<150)
[2020-05-01 07:33] LABS: ALBUMIN 3.8 GM/DL (3.2-5.2); CHOLESTEROL RISK RATIO 3.081 (<5); LDL CHOLESTEROL 55 MG/DL (<100); NON-HDL-C 77 MG/DL; TOTAL PROTEIN 7.4 GM/DL (6.4-8.2)
== END ==
LOC: M LAB 05:59
PROVIDERS: ATTEND Physician Assistant Medical
DX: E78.5 Hyperlipidemia, unspecified (principal); D72.829 Elevated white blood cell count, unspecified; R73.01 Impaired fasting glucose

== ENCOUNTER → 2020-05-18 | Outpatient (CLI) | payer SELFPAY | LOC: M LABSMTC 17:58 | PROVIDERS: ATTEND Pediatrics | DX: Z20.828 Contact with and (suspected) exposure to other viral communicable diseases (principal) ==

== ENCOUNTER → 2020-06-23 | Outpatient (CLI) | payer BC ==
--- NOTE | 2020-06-23 09:20 | REPMRS ---
Patient History The patient states she had a clinical breast exam in June 2020. Family history of pancreatic cancer at age 43 in father. No Hormone Replacement Therapy 3D TOMOSYNTHESIS WAS PERFORMED. [facility] lifetime risk for breast cancer is 5.0%. Volpara breast density b. Digital Woman Screen Mammo: June 23, 2020 - Exam #: [id number] Bilateral CC and MLO view(s) were taken. Technologist: Urmila Aguila, Technologist Prior study comparison: June 20, 2019, bilateral digital woman screen mammo performed at [facility]. May 16, 2018, bilateral digital woman screen mammo performed at [facility]. FINDINGS: There are scattered fibroglandular densities. There has been no change in the appearance of the mammogram from the prior studies. There is a mild amount of residual fibroglandular tissue which is fairly symmetric. There is no interval development of dominant mass, architectural distortion, or clustered microcalcification suggestive of malignancy. Assessment: BI-RADS/ACR category 1 mammogram. Negative Mammogram. Recommendation Routine screening mammogram in 1 year (for women over age 40). This mammogram was interpreted with the aid of an FDA-approved computer-aided dectection system. Electronically Signed By: Trevon Jacobsen MD 06/23/20 [id number]
== END ==
LOC: M WHC 08:06
PROVIDERS: ATTEND Nurse Practitioner Family
DX: Z12.31 Encounter for screening mammogram for malignant neoplasm of breast (principal); Z80.0 Family history of malignant neoplasm of digestive organs

== ENCOUNTER → 2020-06-23 | Outpatient (REF) | payer BC | LOC: M SFHCWAGY 13:34 | PROVIDERS: ATTEND Nurse Practitioner Family | DX: Z01.419 Encounter for gynecological examination (general) (routine) without abnormal findings (principal); Z12.4 Encounter for screening for malignant neoplasm of cervix ==

== ENCOUNTER → 2020-10-21 | Outpatient (CLI) | payer BC ==
[2020-10-21 07:05] LABS: BASO % 0.5 % (0.0-1.0); EOS # 0.1 10^3/uL (0.0-0.5); EOS % 1.2 % (0.0-3.0); HEMOGLOBIN 15.5 g/dl (12.0-15.5); LYMPH # 2.1 10^3/uL (1.5-5.0); LYMPH % 27.3 % (24.0-44.0); MEAN CORPUSCULAR HEMOGLOBIN 30.4 pg (27.0-33.0); MEAN CORPUSCULAR HGB CONC 33.7 g/dl (32.0-36.5); MEAN CORPUSCULAR VOLUME 90.2 fl (80.0-96.0); MONO # 0.6 10^3/uL (0.0-0.8); MONO % 7.6 % (2.0-8.0); NEUTROPHILS # 4.8 10^3/uL (1.5-8.5); NEUTROPHILS % 62.9 % (36.0-66.0); PLATELET COUNT, AUTOMATED 295 10^3/uL (150-450); WHITE BLOOD COUNT 7.6 10^3/uL (4.0-10.0)
[2020-10-21 07:37] LABS: ALBUMIN 3.9 GM/DL (3.2-5.2); ALT/SGPT 76 U/L (12-78); BILIRUBIN,TOTAL 0.3 MG/DL (0.2-1.0); BLOOD UREA NITROGEN 18 MG/DL (7-18); CALCIUM LEVEL 9.6 MG/DL (8.5-10.1); CARBON DIOXIDE LEVEL 27 MEQ/L (21-32); CHLORIDE LEVEL 106 MEQ/L (98-107); CHOLESTEROL LEVEL 113 MG/DL (<200); CHOLESTEROL RISK RATIO 2.973 (<5); CPK CREATINE PHOSPHOKINASE 110 U/L (26-192); CREATININE FOR GFR 0.74 MG/DL (0.55-1.30); FREE T4 0.94 NG/DL (0.76-1.46); GLOMERULAR FILTRATION RATE > 60.0 (>51); GLUCOSE, FASTING 108 MG/DL (70-100); HDL CHOLESTEROL 38 MG/DL (>40); LDL CHOLESTEROL 43 MG/DL (<100); NON-HDL-C 75 MG/DL; POTASSIUM SERUM 4.2 MEQ/L (3.5-5.1); SODIUM LEVEL 140 MEQ/L (136-145); TOTAL PROTEIN 7.5 GM/DL (6.4-8.2); TRIGLYCERIDES LEVEL 161 MG/DL (<150)
[2020-10-21 09:05] LABS: HEMOGLOBIN A1c 5.4 %
[2020-10-21 09:09] LABS: PTH INTACT 31.3 PG/ML (18.5-88.0); TOTAL 25(OH) VITAMIN D 41.9 NG/ML (30.0-100.0)
== END ==
LOC: M LAB 06:05
PROVIDERS: ATTEND Physician Assistant Medical
DX: E78.5 Hyperlipidemia, unspecified (principal); E66.9 Obesity, unspecified; E55.9 Vitamin D deficiency, unspecified; D72.829 Elevated white blood cell count, unspecified; F41.9 Anxiety disorder, unspecified

== ENCOUNTER → 2021-05-01 | Outpatient (CLI) | payer BC ==
[2021-05-01 10:57] LABS: FREE T4 1.06 NG/DL (0.76-1.46); THYROID STIMULATING HORMONE 1.31 uIU/ML (0.358-3.740)
== END ==
LOC: M LAB 08:06
PROVIDERS: ATTEND Physician Assistant Medical
DX: E66.9 Obesity, unspecified (principal)

== ENCOUNTER → 2021-05-01 | Outpatient (CLI) | payer BC ==
[2021-05-01 10:42] LABS: CHOLESTEROL RISK RATIO 3.571 (<5)
== END ==
LOC: M LAB 08:11
PROVIDERS: ATTEND Internal Medicine Interventional Cardiology
DX: E78.5 Hyperlipidemia, unspecified (principal); Z82.49 Family history of ischemic heart disease and other diseases of the circulatory system

== ENCOUNTER → 2021-06-18 | Outpatient (CLI) | payer OTHER | LOC: M RAD 16:18 | PROVIDERS: ATTEND Physician Assistant Medical | DX: M25.562 Pain in left knee (principal) ==

== ENCOUNTER → 2021-06-24 | Outpatient (CLI) | payer OTHER | LOC: M WHC 07:32 | PROVIDERS: ATTEND Nurse Practitioner Women's Health | DX: Z12.31 Encounter for screening mammogram for malignant neoplasm of breast (principal) ==

== ENCOUNTER → 2021-11-04 | Outpatient (CLI) | payer OTHER ==
[2021-11-04 06:57] LABS: BASO % 0.6 % (0.0-1.0); EOS # 0.1 10^3/uL (0.0-0.5); EOS % 2.2 % (0.0-3.0); HEMATOCRIT 44.7 % (36.0-47.0); HEMOGLOBIN 15.1 g/dl (12.0-15.5); LYMPH # 1.7 10^3/uL (1.5-5.0); LYMPH % 27.2 % (24.0-44.0); MEAN CORPUSCULAR HEMOGLOBIN 30.6 pg (27.0-33.0); MEAN CORPUSCULAR HGB CONC 33.8 g/dl (32.0-36.5); MEAN CORPUSCULAR VOLUME 90.7 fl (80.0-96.0); MONO # 0.5 10^3/uL (0.0-0.8); NEUTROPHILS # 3.9 10^3/uL (1.5-8.5); NEUTROPHILS % 61.5 % (36.0-66.0); PLATELET COUNT, AUTOMATED 320 10^3/uL (150-450); RED BLOOD COUNT 4.93 10^6/uL (4.00-5.40); WHITE BLOOD COUNT 6.4 10^3/uL (4.0-10.0)
[2021-11-04 07:12] LABS: HEMOGLOBIN A1c 5.7 %
[2021-11-04 07:19] LABS: ALBUMIN 3.7 GM/DL (3.2-5.2); ALT/SGPT 51 U/L (12-78); BILIRUBIN,TOTAL 0.5 MG/DL (0.2-1.0); BLOOD UREA NITROGEN 17 MG/DL (7-18); CALCIUM LEVEL 9.1 MG/DL (8.5-10.1); CARBON DIOXIDE LEVEL 29 MEQ/L (21-32); CHLORIDE LEVEL 108 MEQ/L (98-107); CHOLESTEROL LEVEL 93 MG/DL (<200); FREE T4 1.08 NG/DL (0.76-1.46); GLOMERULAR FILTRATION RATE > 60.0 (>51); GLUCOSE, FASTING 102 MG/DL (70-100); HDL CHOLESTEROL 31 MG/DL (>40); LDL CHOLESTEROL 40 MG/DL (<100); NON-HDL-C 62 MG/DL; POTASSIUM SERUM 4.5 MEQ/L (3.5-5.1); SODIUM LEVEL 141 MEQ/L (136-145); TOTAL PROTEIN 7.3 GM/DL (6.4-8.2); TRIGLYCERIDES LEVEL 112 MG/DL (<150)
[2021-11-04 12:12] LABS: PTH INTACT 34.2 PG/ML (18.5-88.0); TOTAL 25(OH) VITAMIN D 50.5 NG/ML (30.0-100.0)
== END ==
LOC: M LAB 06:07
PROVIDERS: ATTEND Physician Assistant Medical
DX: F32.9 Major depressive disorder, single episode, unspecified (principal); E78.5 Hyperlipidemia, unspecified; E55.9 Vitamin D deficiency, unspecified; D72.829 Elevated white blood cell count, unspecified; R73.01 Impaired fasting glucose

== ENCOUNTER → 2022-07-01 | Outpatient (REF) | payer OTHER | LOC: M PLALAB 08:38 | PROVIDERS: ATTEND Nurse Practitioner Family | DX: Z12.4 Encounter for screening for malignant neoplasm of cervix (principal); N95.2 Postmenopausal atrophic vaginitis | CPT/HCPCS: 87624; G0123 ==

== ENCOUNTER → 2022-07-01 | Outpatient (CLI) | payer BC, OTHER | LOC: M WHC 07:41 | PROVIDERS: ATTEND Nurse Practitioner Family | DX: Z12.31 Encounter for screening mammogram for malignant neoplasm of breast (principal) ==

== ENCOUNTER → 2022-09-14 | Outpatient (CLI) | payer OTHER ==
[2022-09-14 11:48] LABS: BASO # 0.1 10^3/uL (0.0-0.2); BASO % 0.7 % (0.0-1.0); EOS # 0.1 10^3/uL (0.0-0.5); EOS % 1.4 % (0.0-3.0); HEMATOCRIT 44.9 % (36.0-47.0); HEMOGLOBIN 14.9 g/dl (12.0-15.5); LYMPH # 1.7 10^3/uL (1.5-5.0); LYMPH % 24.8 % (24.0-44.0); MEAN CORPUSCULAR HEMOGLOBIN 30.8 pg (27.0-33.0); MEAN CORPUSCULAR HGB CONC 33.2 g/dl (32.0-36.5); MEAN CORPUSCULAR VOLUME 92.8 fl (80.0-96.0); MONO # 0.6 10^3/uL (0.0-0.8); MONO % 7.8 % (2.0-8.0); NEUTROPHILS # 4.6 10^3/uL (1.5-8.5); NEUTROPHILS % 64.9 % (36.0-66.0); PLATELET COUNT, AUTOMATED 280 10^3/uL (150-450); RED BLOOD COUNT 4.84 10^6/uL (4.00-5.40)
[2022-09-14 12:10] LABS: ALBUMIN 3.6 G/DL (3.2-5.2); ALKALINE PHOSPHATASE 73 U/L (46-116); ALT/SGPT 71 U/L (7.0-40); AST/SGOT 47 U/L (<34); BILIRUBIN,TOTAL 0.4 MG/DL (0.3-1.2); BLOOD UREA NITROGEN 18 MG/DL (9-23); CALCIUM LEVEL 9.2 MG/DL (8.5-10.1); CARBON DIOXIDE LEVEL 31 MMOL/L (20-31); CHLORIDE LEVEL 106 MMOL/L (98-107); CHOLESTEROL LEVEL 100 MG/DL (<200); CHOLESTEROL RISK RATIO 2.97 (<5); CREATININE FOR GFR 0.79 MG/DL (0.55-1.30); GLOMERULAR FILTRATION RATE > 60.0 (>51); GLUCOSE, FASTING 115 MG/DL (60-100); HDL CHOLESTEROL 33.6 MG/DL (>40); LDL CHOLESTEROL 36.6 MG/DL (<100); NON-HDL-C 66.4 MG/DL; SODIUM LEVEL 142 MMOL/L (136-145); TOTAL PROTEIN 6.8 G/DL (5.7-8.2); TRIGLYCERIDES LEVEL 149 MG/DL (<150)
[2022-09-14 12:11] LABS: CPK CREATINE PHOSPHOKINASE 104 U/L (34-145)
[2022-09-14 12:14] LABS: HEMOGLOBIN A1c 5.6 % (4.0-6.0)
== END ==
LOC: M PLALAB 08:28
PROVIDERS: ATTEND Physician Assistant Medical
DX: E78.5 Hyperlipidemia, unspecified (principal); R73.01 Impaired fasting glucose; K21.9 Gastro-esophageal reflux disease without esophagitis; E66.9 Obesity, unspecified

== ENCOUNTER → 2023-07-31 | Outpatient (CLI) | payer OTHER | LOC: M RAD 06:56 | PROVIDERS: ATTEND Physician Assistant Medical | DX: K76.0 Fatty (change of) liver, not elsewhere classified (principal); R79.89 Other specified abnormal findings of blood chemistry; Z90.49 Acquired absence of other specified parts of digestive tract ==

== ENCOUNTER → 2023-08-03 | Outpatient (CLI) | payer OTHER | LOC: M WHC 15:08 | PROVIDERS: ATTEND Nurse Practitioner Family | DX: Z12.31 Encounter for screening mammogram for malignant neoplasm of breast (principal) ==

== ENCOUNTER → 2023-12-22 | Outpatient (CLI) | payer OTHER | LOC: M WHC 08:32 | PROVIDERS: ATTEND Physician Assistant Medical | DX: M81.0 Age-related osteoporosis without current pathological fracture (principal) ==

== ENCOUNTER → 2024-01-08 | Outpatient (CLI) | payer OTHER ==
[~2024-01-08] MED LIST changes: +E-Z-GAS II EFFERVESCENT PACKET (SODIUM BICARB./CITRIC ACID/SIMETHICONE) As Ordered ONE; +E-Z-HD 98% w/w 340GM SUSP BTL As Ordered ONE; +E-Z-PAQUE 96% w/w SUSP 176GM BTL As Ordered ONE
== END ==
LOC: M RAD 08:45
PROVIDERS: ATTEND Surgery
DX: K21.9 Gastro-esophageal reflux disease without esophagitis (principal)

== ENCOUNTER → 2024-12-30 | Outpatient (CLI) | payer OTHER ==
[~2024-12-30] MED LIST changes: -E-Z-GAS II EFFERVESCENT PACKET (SODIUM BICARB./CITRIC ACID/SIMETHICONE) As Ordered ONE; -E-Z-HD 98% w/w 340GM SUSP BTL As Ordered ONE; -E-Z-PAQUE 96% w/w SUSP 176GM BTL As Ordered ONE
== END ==
LOC: M WHC 12:47
PROVIDERS: ATTEND Obstetrics & Gynecology
DX: Z12.31 Encounter for screening mammogram for malignant neoplasm of breast (principal); R92.323 Mammographic fibroglandular density, bilateral breasts

== ENCOUNTER → 2024-12-30 | Outpatient (REF) | payer OTHER | LOC: M PLALAB 13:31 | PROVIDERS: ATTEND Nurse Practitioner Family | DX: Z01.419 Encounter for gynecological examination (general) (routine) without abnormal findings (principal); N95.2 Postmenopausal atrophic vaginitis | CPT/HCPCS: 87624; G0123 ==